=== PATIENT | female | born 1990 | race Caucasian/White ===

== ENCOUNTER → 2016-11-25 | Outpatient (CLI) | payer OTHER | LOC: CAT 08:59 → ULTRA 08:59 | DX: R10.31 Right lower quadrant pain (principal) ==

== ENCOUNTER 2017-03-21 12:15 | Inpatient (IN) | payer OTHER ==
[2017-03-21] VITALS (7 sets, daily range): BP systolic 85–140; BP diastolic 47–72
[~2017-03-21] VITALS: Ht 149.9 cm; Wt 68.0 kg
--- NOTE | ~2017-03-21 | EKG ---
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
[2017-03-21 12:30] LABS: BASOPHILS 0.7 % (0.0-2.0); EOSINOPHILS 1.9 % (0.0-3.0); HEMATOCRIT 40.6 % (37.0-47.0); HEMOGLOBIN 13.8 gm/dL (12.0-15.0); LYMPHOCYTES 35.5 % (24.0-44.0); MANUAL DIFF NO; MCH 30.6 pg (26.0-34.0); MCV 90.1 fL (80.0-100.0); MONOCYTES 8.9 % (1.0-8.0); PLATELET COUNT 238 thou/uL (150-400); RDW 12.5 % (10.5-14.5); WBC 11.3 thou/uL (4.0-11.0)
[2017-03-21 12:37] LABS: CALCIUM 9.3 mg/dL (8.5-10.1); CREATININE 0.6 mg/dL (0.6-1.0)
[2017-03-21 12:38] LABS: POTASSIUM 3.9 mmol/L (3.5-5.1)
[2017-03-21 12:44] LABS: ALBUMIN 4.3 g/dL (3.4-5.0); TOTAL BILIRUBIN 0.3 mg/dL (<0.1-1.0); TOTAL PROTEIN 7.7 g/dL (6.4-8.2)
[2017-03-21] MEDS ORDERED: SERTRALINE HCL50 MG PO (12:45)
[2017-03-21] MEDS ORDERED: MIRALAX17 GM PO (12:45)
[2017-03-21 14:13] LABS: URINE BILIRUBIN NEGATIVE (Negative); URINE BLOOD TRACE (Negative); URINE COLOR YELLOW; URINE GLUCOSE-RANDOM* NEGATIVE (Negative); URINE KETONES NEGATIVE (Negative); URINE NITRITE NEGATIVE (Negative); URINE PROTEIN (DIPSTICK) NEGATIVE (Negative); URINE UROBILINOGEN 0.2 E.U./dl (0.2-1.0)
[2017-03-21 17:20] LABS: HEMATOCRIT 32.3 % (37.0-47.0); MCH 30.5 pg (26.0-34.0); MCHC 33.5 g/dL (28.0-37.0); MCV 90.9 fL (80.0-100.0); RBC 3.55 mil/uL (4.20-5.00); RDW 12.3 % (10.5-14.5); WBC 7.9 thou/uL (4.0-11.0)
[2017-03-21 17:26] LABS: HEMOGLOBIN 10.8 gm/dL (12.0-15.0)
[2017-03-22 04:40] VITALS: BP 93/55
[2017-03-22 08:08] VITALS: BP 88/47
[2017-03-22] MEDS ORDERED: AUGMENTIN 875-1 EACH PO (11:38)
[2017-03-22] MEDS ORDERED: ONDANSETRON HCL4 M2 PO (11:38)
[2017-03-22 11:41] VITALS: BP 88/47
[2017-03-25] MEDS ORDERED: NAPROSYN500 MG PO (21:36)
[2017-03-25] MEDS ORDERED: BACLOFEN 10MG T10 MG PO (21:36)
== END 2017-03-22 12:25 | disposition home or self-care (01) | DRG 871 ==
LOC: ER 12:15 → EROBS 13:55 → 3W 16:02
PROVIDERS: Emergency Medicine; Physician Assistant
DX: A41.9 Sepsis, unspecified organism (principal); J69.0 Pneumonitis due to inhalation of food and vomit; R00.0 Tachycardia, unspecified; F41.9 Anxiety disorder, unspecified; Z87.891 Personal history of nicotine dependence; Z88.8 Allergy status to other drugs, medicaments and biological substances
CPT/HCPCS: 10879

== ENCOUNTER → 2017-05-01 | Outpatient (CLI) | payer OTHER ==
[~2017-05-01] MED LIST: AUGMENTIN 875-1 EACH PO; BACLOFEN 10MG T10 MG PO; MIRALAX17 GM PO; NAPROSYN500 MG PO; ONDANSETRON HCL4 M2 PO; SERTRALINE HCL50 MG PO
== END ==
LOC: ULTRA 14:36
DX: R10.31 Right lower quadrant pain (principal); R61 Generalized hyperhidrosis

== ENCOUNTER → 2017-05-25 | Outpatient (CLI) | payer OTHER | LOC: MRI 06:36 | DX: G43.919 Migraine, unspecified, intractable, without status migrainosus (principal); F41.9 Anxiety disorder, unspecified ==

== ENCOUNTER → 2017-09-29 | Outpatient (CLI) | payer OTHER ==
[~2017-09-29] VITALS: Ht 149.9 cm; Wt 54.4 kg
--- NOTE | ~2017-09-29 | PATH ---
[facility] [place] [address] PATHOLOGY RPT PROCEDURE Name: JACKIE ROA Room #: REG [facility] M..#: [id number] Admission: 09/29/17 Date of : [birth year] Discharge: Report #: [id number] Path Case #: [id number] [facility] Accession Number: [id number] . 01 Material submitted: . PART A: BX OF SMALL BOWEL PART B: BX OF GASTRIC PART C: BX OF DISTAL AND MID ESOPHAGUS . 01 Clinical history: . Chronic constipation, abdominal pain . 02 Diagnosis: A. Small bowel mucosa, small bowel - celiac disease, endoscopic biopsy: - Mild focal increase in intraepithelial lymphocytes without any associated villous blunting (please see comment). - Negative for dysplasia or malignancy. . B. Gastric mucosa, gastric rule out H. pylori, endoscopic biopsy: - Mild reactive gastropathy. - Negative for intestinal metaplasia or atrophy. - Negative for Helicobacter pylori (properly controlled immunohistochemical stain performed). . C. Gastroesophageal mucosa, distal and mid esophagus rule out eosinophilic esophagitis, endoscopic biopsy: - Mild chronic inflammation along with reactive changes. - No increase in intraepithelial eosinophils present. - Negative for intestinal metaplasia or dysplasia. LBQ/09/30/2017 . 02 Comment: Scattered rare foci show a mild increase in lymphocytes within the small bowel epithelium. Associated villous blunting is not present. The finding may be non-specific. Clinical correlation with serological studies as well as other findings is required. . Part A only is co-reviewed by Dr. Ayse Willard. (IUV:db; 09/30/2017) . 02 Electronically signed: . Michelle Rachel MD, Pathologist NPI- [id number] . 01 Gross description: . A. Received in formalin labeled "Jackie Roa, BX of small bowel," are 2 segments of hennessy soft tissue measuring 0.7 x 0.2 x 0.2 [place] [address] PATHOLOGY RPT PROCEDURE Name: JACKIE ROA Room #: REG [facility].#: [id number] Admission: 09/29/17 Date of : [birth year] Discharge: Report #: [id number] Path Case #: [id number] aggregate dimensions and ranging from 0.2 to 0.5 cm in maximum dimension. The specimen is submitted entirely in cassette A1. . B. Received in formalin labeled "Jossie Roanifer, gastric BX, rule out H. pylori," is a single segment of hennessy soft tissue measuring 0.6 cm in maximum dimension. The specimen is entirely submitted in cassette B1. . C. Received in formalin labeled "Jackie Roa, BX of distal and mid esophagus," are 3 segments of hennessy soft tissue measuring 0.9 x 0.5 x 0.2 cm in aggregate dimensions and ranging from 0.2 to 0.3 cm in maximum dimension. The specimen is submitted entirely in cassette C1. (TSD; 09/29/2017) TOB/TOB . 02 Pathologist provided ICD-10: K31.9, K20.9, K59.00, R10.9 . 02 CPT . 948804, 218204, 170018, D01142 Performed at: [address], [place] [id number] MD Savage Tabor MD Phone: [phone] Performed at: [address] [id number] MD Michelle Rachel MD Phone: [phone]
== END | disposition home or self-care (01) ==
LOC: GI 06:59
DX: K31.9 Disease of stomach and duodenum, unspecified (principal); K64.8 Other hemorrhoids; K22.10 Ulcer of esophagus without bleeding; K44.9 Diaphragmatic hernia without obstruction or gangrene; K63.89 Other specified diseases of intestine; Z88.8 Allergy status to other drugs, medicaments and biological substances; Z87.19 Personal history of other diseases of the digestive system; Z98.890 Other specified postprocedural states
CPT/HCPCS: 62110; 62900